=== PATIENT | female | born 1975 | race Caucasian/White ===

== ENCOUNTER → 2018-09-16 | Outpatient (CLI) | payer BC ==
[2018-09-16 12:09] LABS: Basophils % (A) 0 %; Eosinophils # (A) 0.2 k/uL (0-0.7); Eosinophils % (A) 3 %; HCT 38.3 % (34.0-46.0); HGB 11.9 gm/dL (11.4-16.0); Lymphocytes # (A) 1.5 k/uL (1.0-4.8); Lymphocytes % (A) 26 %; MCH 29.5 pg (25.0-35.0); MCHC 31.2 g/dL (31.0-37.0); MCV 94.4 fL (80.0-100.0); Mean Platelet Volume 7.1; Monocytes # (A) 0.3 k/uL (0-1.0); Monocytes % (A) 4 %; Neutrophils # (A) 3.9 k/uL (1.3-7.7); Neutrophils % (A) 65 %; Platelet Count 261 k/uL (150-450); RBC 4.05 m/uL (3.80-5.40); RDW 13.3 % (11.5-15.5)
[2018-09-16 16:22] LABS: African American GFR (CKD) 89.5 (60.0-200.0); Albumin 3.9 g/dL (3.80-4.90); Albumin/Globulin Ratio 1.77 (1.60-3.17); Anion Gap 5.2 mmol/L (4.00-12.00); BUN/Creat Ratio 14.44 Ratio (12.00-20.00); Calcium 8.9 mg/dL (8.7-10.3); Carbon Dioxide 27.8 mmol/L (21.6-31.8); Globulin 2.2 g/dL (1.6-3.3); Potassium 4.6 mmol/L (3.5-5.5); Total Bilirubin 0.3 mg/dL (0.3-1.2); Total Protein 6.1 g/dL (6.2-8.2)
== END | disposition home or self-care (01) ==
LOC: LABWHC1 11:13
PROVIDERS: ATTEND Internal Medicine
DX: E55.9 Vitamin D deficiency, unspecified (principal); F90.9 Attention-deficit hyperactivity disorder, unspecified type; Z13.6 Encounter for screening for cardiovascular disorders
CPT/HCPCS: 36415; 80053; 80061; 82306; 85025

== ENCOUNTER → 2018-12-06 | Outpatient (CLI) | payer BC ==
[2018-12-06 23:08] LABS: Progesterone 9.5 ng/mL
== END | disposition home or self-care (01) ==
LOC: LABWHC1 11:30
PROVIDERS: ATTEND Obstetrics & Gynecology
DX: R61 Generalized hyperhidrosis (principal); R53.83 Other fatigue; R63.3 Feeding difficulties; R45.4 Irritability and anger
CPT/HCPCS: 36415; 82670; 83001; 84144; 84403

== ENCOUNTER → 2019-04-22 | Outpatient (CLI) | payer BC | END | disposition home or self-care (01) | LOC: LABWHC1 16:22 | PROVIDERS: ATTEND Obstetrics & Gynecology | DX: E34.50 Androgen insensitivity syndrome, unspecified (principal); R53.83 Other fatigue; R37 Sexual dysfunction, unspecified | CPT/HCPCS: 36415; 84403 ==

== ENCOUNTER → 2019-11-23 | Outpatient (CLI) | payer BC ==
[2019-11-23 10:00] LABS: Basophils # (A) 0.1 k/uL (0-0.2); Basophils % (A) 1 %; Eosinophils # (A) 0.3 k/uL (0-0.7); Eosinophils % (A) 4 %; HCT 39.3 % (34.0-46.0); HGB 12.5 gm/dL (11.4-16.0); Lymphocytes # (A) 2.2 k/uL (1.0-4.8); Lymphocytes % (A) 33 %; MCH 29.2 pg (25.0-35.0); MCHC 31.7 g/dL (31.0-37.0); Mean Platelet Volume 7.4; Monocytes # (A) 0.4 k/uL (0-1.0); Monocytes % (A) 6 %; Neutrophils # (A) 3.5 k/uL (1.3-7.7); Neutrophils % (A) 54 %; Platelet Count 224 k/uL (150-450); RBC 4.27 m/uL (3.80-5.40); RDW 12.7 % (11.5-15.5); WBC 6.6 k/uL (3.8-10.6)
[2019-11-23 15:34] LABS: African American GFR (CKD) 78.2 (60.0-200.0); Albumin/Globulin Ratio 1.9 (1.60-3.17); Anion Gap 5.2 mmol/L (4.00-12.00); Calcium 8.8 mg/dL (8.7-10.3); Carbon Dioxide 28.8 mmol/L (21.6-31.8); Chol/HDL Ratio 2.69; Globulin 2.1 g/dL (1.6-3.3); LDL Cholesterol,Calculated 63.2 mg/dL (0.0-131.0); Non-African American GFR(CKD) 67.5 (60.0-200.0); Total Bilirubin 0.3 mg/dL (0.2-1.2); Total Protein 6.1 g/dL (6.2-8.2); VLDL Calculation 17.8 mg/dL (5.00-40.00)
[2019-11-24 12:47] LABS: Estradiol 108.5 pg/mL; Follicle Stimulating Hormone 7.4 mIU/mL
== END | disposition home or self-care (01) ==
LOC: LABWHC1 08:46
PROVIDERS: ATTEND Internal Medicine
DX: E34.50 Androgen insensitivity syndrome, unspecified (principal); R53.83 Other fatigue; F90.9 Attention-deficit hyperactivity disorder, unspecified type; E55.9 Vitamin D deficiency, unspecified; Z13.6 Encounter for screening for cardiovascular disorders; F41.1 Generalized anxiety disorder; R37 Sexual dysfunction, unspecified
CPT/HCPCS: 36415; 80053; 80061; 82306; 82670; 83001; 84144; 84403; 84443; 85025

== ENCOUNTER 2022-04-19 08:52 | Emergency (ER) | payer BC ==
[2022-04-19 09:15] VITALS: BP 127/80; PULSE 100; RESP 20; TEMP 98
--- NOTE | 2022-04-19 09:26 | ED ---
Lower Extremity Injury HPI - General Chief Complaint: Extremity Injury, Lower Stated Complaint: Knee pain, Cough Time Seen by Provider: 04/19/22 09:17 Source: patient, RN notes reviewed Mode of arrival: ambulatory Limitations: no limitations - History of Present Illness Initial Comments: 46-year-old female presents emergency Department with chief complaint of right knee pain. Patient states that she was at the [place] school last night states that she attempted to cartwheel and the splits. Patient states her knee twisted states that her foot/lower leg rotated outward. Patient states that she woke once morning had pain in the medial aspect of her knee states that it feels swollen, painful to walk. No paresthesias no other complaints. - Related Data Previous Rx's Medication Instructions Recorded Ibuprofen [Motrin] 600 mg PO Q8HR PRN #20 tab 04/19/22 Allergies Allergy/AdvReac Type Severity Reaction Status Date / Time chlorpromazine Allergy Unknown Verified 04/19/22 09:16 [From Thorazine] formaldehyde Allergy Rash/Hives Verified 04/19/22 09:16 prochlorperazine Allergy Unknown Verified 04/19/22 09:16 [From Compazine] Sulfa (Sulfonamide Allergy Rash/Hives Verified 04/19/22 09:16 Antibiotics) Review of Systems ROS Statement: Those systems with pertinent positive or pertinent negative responses have been documented in the HPI. ROS Other: All systems not noted in ROS Statement are negative. Past Medical History Past Medical History: No Reported History History of Any Multi-Drug Resistant Organisms: None Reported Past Surgical History: No Surgical Hx Reported Past Psychological History: Anxiety, Depression Smoking Status: Never smoker Past Alcohol Use History: None Reported Past Drug Use History: None Reported General Exam Limitations: no limitations General appearance: alert, in no apparent distress Head exam: Present: atraumatic, normocephalic, normal inspection Eye exam: Present: normal appearance, PERRL, EOMI. Absent: scleral icterus, conjunctival injection, periorbital swelling Neck exam: Present: full ROM Respiratory exam: Present: normal lung sounds bilaterally. Absent: respiratory distress, wheezes, rales, rhonchi, stridor Cardiovascular Exam: Present: regular rate, normal rhythm, normal heart sounds. Absent: systolic murmur, diastolic murmur, rubs, gallop, clicks Extremities exam: Present: other (Right knee there is pain with valgus, there is an anterior posterior drawer laxity there is tenderness in the medial aspect with palpation, swelling neurovascular intact pain with range of motion) Course Vital Signs 04/19/22 09:11 Temperature 98 F Pulse Rate 100 Respiratory 20 Rate Blood Pressure 127/80 O2 Sat by Pulse 98 Oximetry Medical Decision Making - Medical Decision Making Was pt. sent in by a medical professional or institution (, [facility], [facility], urgent care, hospital, or skilled nursing...) When possible be specific @ -No Did you speak to anyone other than the patient for history (EMS, parent, family, police, friend...)? What history was obtained from this source @ -No Did you review nursing and triage notes (agree or disagree)? Why? @ -I reviewed and agree with nursing and triage notes Were old charts reviewed (outside hosp., previous admission, EMS record, old EKG, old radiological studies, urgent care reports/EKG's, skilled nursing records)? Report findings @ -No old charts were reviewed Differential Diagnosis (chest pain, altered mental status, abdominal pain women, abdominal pain men, vaginal bleeding, weakness, fever, dyspnea, syncope, headache, dizziness, GI bleed, back pain, seizure, CVA, palpatations, mental health)? @ -Knee sprain, knee strain, internal derangement, femur fracture, tibia fracture, this list is not all inclusive. EKG interpreted by me (3pts min.). @ -None X-rays interpreted by me (1pt min.). @ -Knee x-ray right shows no acute osseous lesion, no significant abnormality CT interpreted by me (1pt min.). @ -None done U/S interpreted by me (1pt. min.). @ -None done What testing was considered but not performed or refused? (CT, X-rays, U/S, labs)? Why? @ -MRI was considered though there is no specific findings on x-ray and the patient will complete MRI outpatient What meds were considered but not given or refused? Why? @ -None Did you discuss the management of the patient with other professionals (professionals i.e. , [facility], [facility], lab, RT, psych nurse, social group worker, patch sander, teacher, correctional officer lieutenant, patient case manager)? Give summary @ -No Was smoking cessation discussed for >3mins.? @ -No Was critical care preformed (if so, how long)? @ -No Were there social determinants of health that impacted care today? How? (Homelessness, low income, unemployed, alcoholism, drug addiction, transportation, low edu. Level, literacy, decrease access to med. care, long term, rehab)? @ -No Was there de-escalation of care discussed even if they declined (Discuss DNR or withdrawal of care, Hospice)? DNR status @ -No What co-morbidities impacted this encounter? (DM, HTN, Smoking, COPD, CAD, Cancer, CVA, ARF, Chemo, Hep., AIDS, mental health diagnosis, sleep apnea, morbid obesity)? @ -None Was patient admitted / discharged? Hospital course, mention meds given and route, prescriptions, significant lab abnormalities, going to OR and other pertinent info. @ -Discharged patient has right knee sprain, patient will follow-up with orthopedics for MRI as needed, patient was placed in knee immobilizer. Undiagnosed new problem with uncertain prognosis? @ -No Drug Therapy requiring intensive monitoring for toxicity (Heparin, Nitro, Insulin, Cardizem)? @ -No Were any procedures done? @ -No Diagnosis/symptom? @ -[Right knee sprain Acute, or Chronic, or Acute on Chronic? @ -Acute Uncomplicated (without systemic symptoms) or Complicated (systemic symptoms)? @ -Uncomplicated Side effects of treatment? @ -No Exacerbation, Progression, or Severe Exacerbation? @ -No Poses a threat to life or bodily function? How? (Chest pain, [place], [place], pneumonia, PE, COPD, DKA, ARF, appy, cholecystitis, CVA, Diverticulitis, Homicidal, Suicidal, threat to staff... and all critical care pts) @ -No Disposition Clinical Impression: Right knee sprain Disposition: HOME SELF-CARE Condition: Stable Instructions (If sedation given, give patient instructions): Knee Sprain (ED) Additional Instructions: Please return to the Emergency Department if symptoms worsen or any other concerns. Prescriptions: Ibuprofen [Motrin] 600 mg PO Q8HR PRN #20 tab PRN Reason: Pain Is patient prescribed a controlled substance at d/c from ED?: No Referrals: Sheldon White MD [Primary Care Provider] - 1-2 days Jani Carnes MD [STAFF PHYSICIAN] - 1-2 days Time of Disposition: 10:16
--- NOTE | 2022-04-19 10:12 | XR ---
EXAMINATION TYPE: XR knee complete RT DATE OF EXAM: 04/19/2022 COMPARISON: None HISTORY: Twisted right knee TECHNIQUE: 3 view right knee FINDINGS: Joint space is preserved. No acute fracture or dislocation is evident. No joint effusion is evident. MRI can be performed for soft tissue evaluation. Follow up exams can be performed 7-10 days from acut e trauma for continued pain. IMPRESSION: 1. No acute osseous abnormality right knee
== END 2022-04-19 10:33 | disposition home or self-care (01) ==
LOC: EC 08:52
DX: S83.91XA Sprain of unspecified site of right knee, initial encounter (principal); Z88.1 Allergy status to other antibiotic agents; Z88.2 Allergy status to sulfonamides; Z88.8 Allergy status to other drugs, medicaments and biological substances; X50.1XXA Overexertion from prolonged static or awkward postures, initial encounter; Y92.219 Unspecified school as the place of occurrence of the external cause
CPT/HCPCS: 73562; 99283; L1830

== ENCOUNTER → 2024-06-02 | Outpatient (CLI) | payer BC ==
--- NOTE | 2024-06-03 08:47 | MM ---
Reason for Exam: Screening (asymptomatic). Last mammogram was performed 8 year(s) and 7 month(s) ago. Patient History: Menarche at age 15. First Full-Term at age 27. Paternal grandmother had breast cancer, age 40. Risk Values: Yuliana 5 year model risk: 1.0%. NCI Lifetime model risk: 9.1%. Prior Study Comparison: 11/24/2015 Bilateral Screening Mammogram, [facility]. Tissue Density: The breasts are heterogeneously dense, which may obscure small masses. Findings: Analyzed By CAD. There is no suspicious group of microcalcifications or new suspicious mass in either breast. Overall Assessment: Negative, BI-RAD 1 Management: Screening Mammogram of both breasts in 1 year. Patient should continue monthly self-breast exams. A clinical breast exam by your physician is recommended on an annual basis. This exam should not preclude additional follow-up of suspicious palpable abnormalities. Note on Yuliana scores and lifetime risk: 1. A Yuliana score greater than 3% is considered moderate risk. If this is the case, consider specialist referral to assess eligibility for a risk reducing agent. 2. If overall lifetime risk for the development of breast cancer is 20% or higher, the patient may qualify for future screening with alternating mammogram and breast MRI. [facility], , 06/03/2024 8:44 AM. Electronically signed and approved by: Renetta Garza M.D. Radiologist
== END | disposition home or self-care (01) ==
LOC: RADMAMWWP 16:34
PROVIDERS: ATTEND Family Medicine
DX: Z12.31 Encounter for screening mammogram for malignant neoplasm of breast (principal); R92.333 Mammographic heterogeneous density, bilateral breasts; Z80.3 Family history of malignant neoplasm of breast
CPT/HCPCS: 77063; 77067